=== PATIENT | female | born 1945 | race Caucasian/White ===

== ENCOUNTER 2019-11-27 12:13 | Outpatient (RCR) | payer MEDICARE, OTHER, SELFPAY | END 2019-12-13 23:59 | disposition home or self-care (01) | LOC: SPT 12:13 | PROVIDERS: Family Provider Family Medicine; PCP Family Medicine; Referring Provider Orthopaedic Surgery; Visit Provider Orthopaedic Surgery | DX: M75.01 Adhesive capsulitis of right shoulder (principal) | CPT/HCPCS: 97110; 97161 ==

== ENCOUNTER 2019-12-14 06:00 | Outpatient (RCR) | payer MEDICARE, OTHER, SELFPAY | END 2020-01-11 23:59 | disposition home or self-care (01) | LOC: SPT 06:00 | PROVIDERS: Family Provider Family Medicine; PCP Family Medicine; Referring Provider Orthopaedic Surgery; Visit Provider Orthopaedic Surgery | DX: M75.01 Adhesive capsulitis of right shoulder (principal) | CPT/HCPCS: 97110 ==

== ENCOUNTER 2020-01-12 06:00 | Outpatient (RCR) | payer MEDICARE, OTHER, SELFPAY | END 2020-01-15 23:00 | disposition home or self-care (01) | LOC: SPT 06:00 | PROVIDERS: Family Provider Family Medicine; PCP Family Medicine; Referring Provider Orthopaedic Surgery; Visit Provider Orthopaedic Surgery | DX: Z01.89 Encounter for other specified special examinations (principal) ==

== ENCOUNTER 2020-09-16 09:20 | Outpatient (CLI) | payer MEDICARE, OTHER, SELFPAY ==
--- NOTE | 2020-09-16 09:31 | US_ITS ---
WS: [id number] ULTRASOUND ABDOMEN LIMITED CLINICAL INFORMATION: EPIGASTRIC ABDOMINAL PAIN COMPARISON: None. FINDINGS: Liver Size: Normal. Craniocaudal length: 14.6 cm. Echogenicity: Normal. Surface nodularity: None. Mass (size and location): None. Bile ducts Intrahepatic ducts: Normal. Common bile duct diameter: 0.6 cm. Gallbladder Normal. Gallstones: None. Gallbladder sludge: None. Gallbladder wall thickening: None. Pericholecystic fluid: None. Sonographic Irving sign: Absent. Pancreas Normal as visualized. Right kidney: Upper pole renal cyst measuring 4.1 x 3.6 x 3.4 cm Hydronephrosis: None. Size: 10.9 cm x 4.6 cm x 3.7 cm. Abdominal aorta and IVC Visualized portions are normal. Ascites: None. US/US gall bladder [id number] IMPRESSION: 1. Normal liver. 2. Cholelithiasis. Normal common bile duct. No gallbladder wall thickening. 3. Simple cyst upper pole right kidney measuring 4.1 x 3.6 x 3.4 cm
== END 2020-09-16 09:21 | disposition home or self-care (01) ==
LOC: RAD 09:27
PROVIDERS: PCP Family Medicine; Visit Provider Family Medicine
DX: R10.13 Epigastric pain (principal); K80.20 Calculus of gallbladder without cholecystitis without obstruction; Q61.01 Congenital single renal cyst
CPT/HCPCS: 76705

== ENCOUNTER 2020-11-05 07:27 | Outpatient (CLI) | payer MEDICARE, OTHER, SELFPAY ==
--- NOTE | 2020-11-05 07:31 | NM_ITS ---
WS: [id number] NUCLEAR MEDICINE HIDA SCAN WITH GALLBLADDER EJECTION FRACTION HISTORY: EPIGASTRIC and ABDOMINAL PAIN COMPARISON: 09/16/2020 gallbladder ultrasound TECHNIQUE: The patient was intravenously injected with 8.2 mCi of TC99m Mebrofenin. Immediate imaging over the right upper quadrant was followed by 5 minute image and additional images for a total of 60 minutes. Normal uptake of radiotracer throughout the liver. Activity identified in the gallbladder at 30 minutes and well distended by 60 minutes. Activity in the proximal small bowel was seen by 20 minutes. Good washout of the radiotracer from the liver by 60 minutes. The patient then drank 8 ounces of Ensure Plus. Ejection fraction at 60 minutes was 78%. Normal GB ej ection fraction is 35-75%. Post fatty meal symptoms: Mild nausea. NM/NM hepatobiliary w phar* [id number] IMPRESSION: 1. Normal HIDA scan. 2. Normal gallbladder ejection fraction.
== END 2020-11-05 07:28 | disposition home or self-care (01) ==
LOC: RAD 07:30
PROVIDERS: PCP Family Medicine; Visit Provider Family Medicine
DX: R10.13 Epigastric pain (principal); R10.9 Unspecified abdominal pain
CPT/HCPCS: 78227; A9537

== ENCOUNTER 2021-03-25 09:37 | Outpatient (CLI) | payer MEDICARE, OTHER, SELFPAY ==
--- NOTE | 2021-03-25 09:45 | MM_ITS ---
WS: [id number] BILATERAL DIGITAL SCREENING MAMMOGRAPHY WITH CAD CLINICAL INFORMATION: SCREENING HISTORY: Screening mammogram. No current complaints. COMPARISON: October 16, 2019 TECHNIQUE: Bilateral CC and MLO views. FINDINGS: Scattered fibroglandular densities bilaterally. Stable 11 mm ovoid asymmetry near the left areola. No suspicious focal mass, asymmetry, calcifications, or architectural distortion. No evidence of malign melody. MM/[place] [id number] IMPRESSION: BI-RADS: 2-Benign FOLLOW UP: 1 Year Follow-up Recommend return to annual screening mammography.
== END 2021-03-25 09:38 | disposition home or self-care (01) ==
LOC: RADSHAW 09:43
PROVIDERS: PCP Family Medicine; Visit Provider Family Medicine
DX: Z12.31 Encounter for screening mammogram for malignant neoplasm of breast (principal)
CPT/HCPCS: 77067

== ENCOUNTER 2021-04-07 14:22 | Outpatient (CLI) | payer MEDICARE, OTHER, SELFPAY ==
--- NOTE | 2021-04-07 14:38 | XR_ITS ---
WS: [id number] Exam: XR shoulder LT min 2V* [id number] Date/Time of Exam: 04/07/2021 2:41 PM Reason For Exam: SHOULDER PAIN, LEFT Comparison 02/23/2015. No fracture or dislocation. Minimal degenerative change at the AC joint and glenohumeral joint. [place]og[place] l soft tissues. A rectangular opacity superimposes the proximal humerus and probably represents an ar tifact in the clothing. XR/XR shoulder LT min 2V* [id number] IMPRESSION: 1. Minimal degenerative change. No fracture or dislocation.
== END 2021-04-07 14:23 | disposition home or self-care (01) ==
PROVIDERS: PCP Family Medicine; Visit Provider Family Medicine
DX: M25.512 Pain in left shoulder (principal)
CPT/HCPCS: 73030

== ENCOUNTER → 2022-11-24 07:48 | Outpatient (BNVA) | payer MEDICARE, OTHER, SELFPAY | PROVIDERS: PCP Family Medicine; Visit Provider Family Medicine | DX: M81.0 Age-related osteoporosis without current pathological fracture (principal); I10 Essential (primary) hypertension; Z00.00 Encounter for general adult medical examination without abnormal findings; E78.5 Hyperlipidemia, unspecified | CPT/HCPCS: 80053; 80061 ==

== ENCOUNTER 2022-12-20 10:54 | Outpatient (CLI) | payer MEDICARE, OTHER, SELFPAY ==
--- NOTE | 2022-12-20 13:30 | XR_ITS ---
WS: [id number] SCREENING DEXA SCAN [facility] [place] CLINICAL INFORMATION: hx of osteoporosis COMPARISON: 2018 FINDINGS: The L1-L4 bone mineral density measures 0.864 g/cm2. This corresponds to a T score score of -2.6 and Z score of -0.8. Left femoral neck bone mineral density measures 0.702 g/cm2. This corresponds to a T score of -2.4 an d Z score of -0.5. Right femoral neck bone mineral density measures 0.721 g/cm2. This corresponds to a T score -2.3of an d Z score of -0.4. Mean femoral neck bone mineral density measures 0.712 g/cm2. This corresponds to a T score of -2.3 an d Z score of -0.5. XR/XR DEXA axial skeleton* [id number] IMPRESSION: Osteoporosis lumbar spine. Osteopenia femoral necks at the upper end of the ran ge Patient's FRAX calculated 10 year probability for major osteoporotic fracture i s 36.2 % and osteoporotic hip fracture is 20.0%. Bone mineral density in the lumbar spine has increased 6.4% since 2018. Bone mineral density in the femoral necks increased 4.9% since 2018.
== END 2022-12-20 10:55 | disposition home or self-care (01) ==
LOC: RAD 10:55
PROVIDERS: PCP Family Medicine; Visit Provider Family Medicine
DX: Z00.00 Encounter for general adult medical examination without abnormal findings (principal); M81.0 Age-related osteoporosis without current pathological fracture
CPT/HCPCS: 77080

== ENCOUNTER 2022-12-20 10:54 | Outpatient (CLI) | payer MEDICARE, OTHER, SELFPAY ==
--- NOTE | 2022-12-20 11:00 | MM_ITS ---
WS: [id number] BILATERAL SCREENING DIGITAL TOMOSYNTHESIS MAMMOGRAM WITH CAD HISTORY: screening COMPARISON: 03/25/2021 and 04/03/2017 Bilateral CC and MLO views with tomosynthesis and synthetic mammography submitted. Computer aided det ection analyzed. Breast composition: There are scattered areas of fibroglandular density. No suspicious masses, microc alcifications or architectural distortion. MM/[place] [id number] IMPRESSION: BI-RADS: 1-Negative FOLLOW UP: 1 Year Follow-up
== END 2022-12-20 10:55 | disposition home or self-care (01) ==
LOC: RAD 10:55
PROVIDERS: PCP Family Medicine; Visit Provider Family Medicine
DX: Z12.31 Encounter for screening mammogram for malignant neoplasm of breast (principal)
CPT/HCPCS: 77063; 77067

== ENCOUNTER → 2023-11-15 09:16 | Outpatient (BNVA) | payer MEDICARE, OTHER, SELFPAY | PROVIDERS: PCP Family Medicine; Visit Provider Clinical Nurse Specialist Adult Health | DX: R30.0 Dysuria (principal) | CPT/HCPCS: 81000; 87077; 87086; 87184 ==

== ENCOUNTER 2024-01-18 06:45 | Outpatient (CLI) | payer MEDICARE, OTHER, SELFPAY ==
--- NOTE | 2024-01-18 07:00 | USCV_ITS ---
Dayana Diaz Age: 78 Gender: F : 1945 Exam Date: 01/18/2024 06:50 Ordering Phys: Jacob Bains MD Technologist: BROOK Exam Location: [facility] [place] Indication: 3 EPISODES OF AMG FUGAX. Risk Factors: Unknown Previous Vascular Surgery: None PER PT Right Brachial BP: / Left Brachial BP: / Right Left Velocity (cm/s) Spectral Plaque Velocity (cm/s) Spectral Plaque Syst/Diast Broadening Syst/Diast Broadening 63.40/ 19.30 Prox CCA 50.50 / 14.50 52.20/ 13.00 Mid CCA 52.70 / 13.60 46.30/ 10.60 Hetro Distal CCA 45.30 / 12.60 Hetro 263.00/53.90 Hetro Prox ICA 107.20/ 36.60 Hetro 174.90/43.40 Mid ICA 86.50 / 19.60 130.00/22.30 Distal ICA 61.50 / 15.30 146.40 Hetro ECA 174.00 Hetro 5.70 ICA/CCA 2.40 Antegrade Vertebral Antegrade 21.60/ 6.00 cm/s 34.90/ 8.30 cm/s Tri Subclavian Bi 218.3 58.70 0 FINDINGS Moderate to heavy heterogenous plaques at the right bifurcation and proximal to mid internal carotid artery. Moderate heterogenous plaques at the left bifurcation and internal carotid artery. Antegrade flow in the vertebral arteries bilaterally. Elevated velocity in the right subclavian artery CONCLUSIONS Moderate to heavy heterogenous plaques at the right bifurcation and proximal to mid internal carotid artery with elevated Doppler velocities and ratios, suggesting greater than 70% stenosis. Moderate heterogenous plaques at the left bifurcation and internal carotid artery with Doppler features suggesting less than 50% stenosis. Elevated velocity in the right subclavian artery, main suggests tortuosity Compared to the study from 08/11/2014, there is worsening of the stenosis bilaterally Dr Benjamin Levi MD [facility] (Electronically Signed) Final Date: 19 January 2024 18:29 S
== END 2024-01-18 06:46 | disposition home or self-care (01) ==
LOC: RAD 06:45
PROVIDERS: PCP Family Medicine; Visit Provider Family Medicine
DX: G45.9 Transient cerebral ischemic attack, unspecified (principal)
CPT/HCPCS: 93880

== ENCOUNTER 2024-02-01 11:53 | Outpatient (CLI) | payer MEDICARE, OTHER, SELFPAY ==
--- NOTE | 2024-02-01 12:00 | CT_ITS ---
WS: [id number] CTA NECK TECHNIQUE: Contrast enhanced CTA of the neck with coronal and sagittal reformatted images and maximum intensity projection (MIP) images. NASCET criteria utilized. CLINICAL INFORMATION: TIA carotid artery stenosis COMPARISON: Ultrasound 01/18/2024 DLP: 179.[address] scans at [facility] use at least one of these dose optimization techniques: automated e xposure control; mA and/or kV adjustment per patient size (includes targeted exams where dose is matc hed to clinical indication); or iterative reconstruction. FINDINGS: RIGHT: RIGHT common carotid artery is patent. Dense calcified atheromatous plaque RIGHT carotid bulb extending into the ICA. RIGHT ICA remains patent to the skull base. RIGHT ICA stenosis measures 60% LEFT: LEFT common carotid artery is patent. Dense calcified atheromatous plaque LEFT carotid bulb ext ending into the ICA. Severe LEFT ECA stenosis. LEFT ICA stenosis measures 38%. LEFT ICA remains paten t to the skull base. Codominant patent vertebral arteries bilaterally. Paranasal sinuses are well aerated. Mastoid air cells are well aerated. Normal posterior nasopharynx. Emphysematous changes in the lung apices. Proximal subclavian arteries are patent. Moderate spondyli tic changes cervical spine. IMPRESSION: 1. RIGHT ICA stenosis measures 60%. 2. LEFT ICA stenosis measures 38%. 3. ICAs remain patent to the skull base. 4. Codominant patent vertebral arteries bilaterally.
[2024-02-01 12:29] LABS: Blood Urea Nitrogen 22 mg/dL (8-23)
[2024-02-01] MEDS: iohexol 350 mg/mL 500 mL Btl (per mL) IV (12:47)
== END 2024-02-01 11:54 | disposition home or self-care (01) ==
LOC: RAD 11:54
PROVIDERS: PCP Family Medicine; Visit Provider Family Medicine
DX: I65.23 Occlusion and stenosis of bilateral carotid arteries (principal)
CPT/HCPCS: 70498; 82565; 84520; Q9967

== ENCOUNTER → 2024-05-28 10:43 | Outpatient (CLI) | payer MEDICARE, OTHER, SELFPAY ==
--- NOTE | 2024-05-28 10:50 | MM_ITS ---
WS: [id number] BILATERAL 3D TOMOSYNTHESIS DIGITAL SCREENING MAMMOGRAPHY WITH CAD CLINICAL INFORMATION: SCREENING HISTORY: Screening mammogram. No current complaints. COMPARISON: 2022 TECHNIQUE: Bilateral CC and MLO views. FINDINGS: Scattered fibroglandular densities bilaterally. No suspicious focal mass, asymmetry, calcifications, or architectural distortion. No evidence of malignancy. Vascular calcification. Subareolar density LE FT breast appears stable since 2017. MM/[place] [id number] IMPRESSION: BI-RADS: 2-Benign FOLLOW UP: 1 Year Follow-up Recommend return to annual screening mammography.
== END | disposition home or self-care (01) ==
LOC: RAD 10:43
PROVIDERS: PCP Family Medicine; Visit Provider Family Medicine
DX: Z12.31 Encounter for screening mammogram for malignant neoplasm of breast (principal); R92.323 Mammographic fibroglandular density, bilateral breasts; R92.1 Mammographic calcification found on diagnostic imaging of breast
CPT/HCPCS: 77063; 77067

== ENCOUNTER 2024-09-20 12:45 | Outpatient (CLI) | payer MEDICARE, OTHER, SELFPAY ==
--- NOTE | 2024-09-20 13:00 | CTR_ITS ---
PROCEDURE INFORMATION: Exam: CTA Neck With Contrast Exam date and time: 09/20/2024 1:18 PM Age: 79 years old Clinical indication: Condition or disease; Occlusion or stenosis of cerebral arteries; Additional info: Follow-up on carotid artery stenosis TECHNIQUE: Imaging protocol: Computed tomographic angiography of the neck with contrast. Exam focused on the cervical segments of the vasculature. 3D rendering (Not supervised by radiologist): MIP and/or 3D reconstructed images were created by the technologist. Radiation optimization: All CT scans at this facility use at least one of these dose optimization techniques: automated exposure control; mA and/or kV adjustment per patient size (includes targeted exams where dose is matched to clinical indication); or iterative reconstruction. Contrast material: OMNI 350; Contrast volume: 100 ml; Contrast route: INTRAVENOUS (IV); COMPARISON: CT angio neck [id number] 02/01/2024 12:30 PM RADIATION DOSE METRICS: Total DLP (mGy-cm): 200.4 FINDINGS: Right common carotid artery: No stenosis. No dissection or occlusion. Right internal carotid artery: Large volume mixed calcified and noncalcified plaque involving the proximal right internal carotid artery. Moderate severity stenosis with no significant change. Negative for dissection. Negative for occlusion. Right external carotid artery: Mild severity stenosis of the right external carotid artery origin. Left common carotid artery: Small volume smoothly marginated noncalcified plaques in the left common carotid artery demonstrating very mild stenosis. Left internal carotid artery: Large volume mixed calcified and noncalcified plaque involving the proximal left internal carotid artery. Mild severity stenosis without significant interval change. Negative for dissection. Negative for occlusion. Left external carotid artery: Moderate severity stenosis of the left external carotid artery origin. Right vertebral artery: No stenosis. No dissection or occlusion. Left vertebral artery: No stenosis. No dissection or occlusion. Soft tissues: Normal. No significant soft tissue swelling. Bones/joints: No acute fracture. CT/CT angio neck [id number] IMPRESSION: 1. Moderate severity right internal carotid artery stenosis estimated 50-69% with no significant interval changes. 2. Mild severity left carotid artery stenosis estimated less than 50% without significant interval change. REFERENCES: NASCET CRITERIA. The degree of stenosis in the cervical segment of the internal carotid artery is based on NASCET criteria. Normal is no stenosis. Mild is less than 50% stenosis. Moderate is 50-69% stenosis. Severe is 70% to 99% stenosis. Total occlusion is no detectable patent lumen.
[2024-09-20 13:20] LABS: Blood Urea Nitrogen 23 mg/dL (8-23)
[2024-09-20] MEDS: iohexol 350 mg/mL 500 mL Btl (per mL) IV (13:32)
== END 2024-09-20 12:46 | disposition home or self-care (01) ==
LOC: RAD 12:45
PROVIDERS: PCP Family Medicine; Visit Provider Family Medicine
DX: I65.21 Occlusion and stenosis of right carotid artery (principal)
CPT/HCPCS: 70498; 82565; 84520

== ENCOUNTER → 2025-05-27 10:41 | Outpatient (BNVA) | payer MEDICARE, OTHER, SELFPAY | PROVIDERS: PCP Family Medicine; Visit Provider Family Medicine | DX: I10 Essential (primary) hypertension (principal) | CPT/HCPCS: 80053; 80061; 84443; 85025 ==

== ENCOUNTER 2025-08-11 06:52 | Outpatient (CLI) | payer MEDICARE, OTHER, SELFPAY ==
--- NOTE | 2025-08-11 07:00 | CT_ITS ---
WS: [id number] CT ANGIOGRAM CAROTID ARTERIES HISTORY: lightheaded, dizzy, history of carotid stenosis TECHNIQUE: CT angiogram is performed of the carotid arteries. During arterial injection imaging is obtained from the skull base to the aortic arch in 1.25 mm imaging. Coronal and sagittal reformats are submitted, MIP imaging also reviewed. Additional multiplanar reformats of the carotid arteries are carrillo bmitted. NASCET criteria utilized. All CT scans at [facility] [place] use at least one of these dose optimization techniques: automated exposure control; mA and/or kV adjustment per patient size (includes targeted exams where dose is matched to clinical indication); or iterative reconstruction. CONTRAST: Omnipaque 350; 100 mL IV. DLP: 180.51 mGy.cm COMPARISON: 09/20/2024 Right carotid: Common carotid artery: Arises normally from the innominate artery. No significant plaque or stenosis. Internal carotid artery: Increasing plaque burden at the bifurcation. There is calcified plaque and mild intimal thickening. Similar to the prior study with stenosis estimated at 61%. External carotid artery: Patent. Left carotid: Common carotid artery: Small amount of plaque at the origin from the arch. Internal carotid artery: Scattered plaque at the carotid bifurcation. No high- grade stenosis. Stenosis estimated at 49%. External carotid artery: Patent. Right vertebral artery: Small amount of plaque at the origin but no high-grade stenosis. Codominant. Left vertebral artery: Codominant. No stenosis. Subclavian arteries: No stenosis or abnormality identified. Upper thorax: Moderate plaque in the thoracic aortic arch. Lung apices are clear. Thyroid gland: Normal. Osseous structures: Moderate degenerative disc disease and spondylosis. Skull base: Negative. CT/CT angio neck [id number] IMPRESSION: 1. No significant interval change in the cervical carotid artery stenosis sinc e 09/20/2024. 2. RIGHT ICA stenosis estimated at 61%. 3. LEFT ICA stenosis estimated at 49%. 4. Codominant vertebral arteries are both patent.
[2025-08-11 07:27] LABS: Blood Urea Nitrogen 18 mg/dL (8-23)
[2025-08-11] MEDS: iohexol 350 mg/mL 500 mL Btl (per mL) IV (07:27)
== END 2025-08-11 06:53 | disposition home or self-care (01) ==
LOC: RAD 06:52
PROVIDERS: PCP Family Medicine; Visit Provider Family Medicine
DX: I65.23 Occlusion and stenosis of bilateral carotid arteries (principal); I70.90 Unspecified atherosclerosis; I70.0 Atherosclerosis of aorta; M47.812 Spondylosis without myelopathy or radiculopathy, cervical region
CPT/HCPCS: 70498; 82565; 84520